=== PATIENT | male | born 1970 | race Caucasian/White ===

== ENCOUNTER 2021-01-18 05:36 | Emergency (ER) | payer OTHER, SELFPAY ==
[2021-01-18 05:47] VITALS: BP 166/75; PULSE 78; RESP 12; O2SAT 99; BMI 26.3
[2021-01-18 06:02] VITALS: BP 140/74; PULSE 76; RESP 14; TEMP 36.9; O2SAT 98
--- NOTE | 2021-01-18 06:36 | ED.EYEPROB ---
HPI - Eye Problem General Chief complaint: Eye Problems Stated complaint: chemical burn in eye Time Seen by Provider: 01/18/21 06:36 Source: patient and mechanics handyman Mode of arrival: ambulatory Limitations: no limitations History of Present Illness chief complaint: eye redness and eye injury Onset (ago): day(s) (yesterday at noon) Onset description: sudden Duration: improved Location: right eye Eye Symptoms: redness and discharge Place: work Mechanism: chemical exposure (sodium hydroxide) Severity: moderate Context: trauma Associated symptoms: none Treatments Prior to Arrival: irrigated eye (eye wash station and entire bottle of solution at work yesterday) Related Data Previous Rx's Medication Instructions Recorded erythromycin 5 mg/gram (0.5 %) eye 0.5 inch OPHTHALMIC (EYE) TID 5 01/18/21 ointment Days #3.5 g Allergies Allergy/AdvReac Type Severity Reaction Status Date / Time bee pollen [BEE STINGS] Allergy Unknown CAN T Unverified 10/26/19 18:28 BREATH From LEXAPRO Allergy Unknown SI Uncoded 10/26/19 18:28 THC Allergy Unknown CANT BREATH Uncoded 10/26/19 18:28 Review of Systems Review of Systems: Constitutional : No Weight loss, No Fever, No Chills Eyes: No Eye Pain, pos Swelling,pos Redness Cardiovascular : No Chest Pain, No SOB Respiratory : No Cough, No Sputum, No Wheezing Gastrointestinal : No Nausea, No Vomiting Skin : No Skin Lesions, No rash Neuro : No Weakness, No Numbness, No Dizziness, No Headache All other systems reviewed and are negative [facility] Past Medical History Medical History No known health problems Social History Social History (Updated 01/18/21 @ 06:49 by Brenda Bauer DO) Patient Tobacco Use Status: Tobacco use Unknown Advance Directives: No Advance Directives Information Provided: Yes Physical Exam Vital Signs: Vital Signs: Last Vital Signs Temp 98.5 F 01/18/21 06:02 Pulse 76 01/18/21 06:02 Resp 14 01/18/21 06:02 BP 140/74 H 01/18/21 06:02 Pulse Ox 98 01/18/21 06:02 BMI result Body Mass Index 26.3 Appearance: Alert. Oriented X3. No acute distress. Eyes: Pupils equal, round and reactive to light. L 20/30 R 20/50 R eye scant yellow drainage, R conjunctiva is hyperemic no ciliary flush no photophobia lids normal ENT: Pharynx normal. Neck: Normal inspection. Neck supple. CVS: Normal heart rate and rhythm. Pulses normal. Respiratory: No respiratory distress. Breath sounds normal. Abdomen: atraumatic Skin: Skin warm and dry. Normal skin color. Extremities: No lower extremity edema. Neuro: Oriented X 3. No motor deficit. No sensory deficit. MDM - Eye Problem MDM Narrative Medical decision making narrative: 49 male does not wear contacts comes in with c/o R eye redness yellow drainage following sodium hydroxide exposure at work yesterday - irrigated fully at eye wash station denies pain or vision changes it is not worth irrigating the eye again since he has no pain no photophobia likely chemical conjunctivitis - pupil is normal will place on ointment and instruct him to follow up with eye doctor Discharge Plan Discharge Clinical Impression: Acute chemical conjunctivitis Patient Disposition: Home, Self-Care Instructions: Conjunctivitis (ED) Additional Instructions: return to ED for any worsening symptoms or concerns Prescriptions: New erythromycin 5 mg/gram (0.5 %) ointment 0.5 inch ophthalmic (eye) TID 5 Days Qty: 3.5 RF: 0 Referrals: Randall Jaquez [Physician] - 5 days Print Language: [place] Island[place]
--- NOTE | 2021-01-18 07:38 | PC.NURSE ---
Report rec'd from Essie, awaiting DC at this time. Will continue to estrellita.
== END 2021-01-18 07:41 | disposition home or self-care (01) ==
PROVIDERS: Emergency Provider Emergency Medicine
DX: T54.3X1A Toxic effect of corrosive alkalis and alkali-like substances, accidental (unintentional), initial encounter (principal); T26.61XA Corrosion of cornea and conjunctival sac, right eye, initial encounter; Y93.9 Activity, unspecified; Y92.9 Unspecified place or not applicable; Y99.0 Civilian activity done for income or pay
CPT/HCPCS: 99283